=== PATIENT | female | born 1955 | race Caucasian/White ===

== ENCOUNTER → 2017-09-28 | Outpatient (CLI) | payer OTHER ==
[~2017-09-28] MED LIST: ASPI81CH PO; FLUO10 PO; Hair, Skin & N1 EACH PO; OSTERA TABLET1 EACH PO
[2017-09-30 12:11] LABS: HPV Genotype 16 Not Detected (NOTDET); HPV Genotype 18 Detected (NOTDET)
[2017-10-04 12:34] LABS: HPV High Risk Other Not Detected (NOTDET)
== END ==
LOC: OLS 12:56
PROVIDERS: Nurse Practitioner Women's Health
DX: R87.810 Cervical high risk human papillomavirus (HPV) DNA test positive (principal)
CPT/HCPCS: 87624; G0123

== ENCOUNTER → 2018-04-04 | Outpatient (CLI) | payer OTHER ==
[2018-04-06 14:10] LABS: HPV 16 Negative (Negative); HPV 18 Positive (Negative); HPV OTHER HR TYPES Negative (Negative)
== END | disposition home or self-care (01) ==
LOC: LAB 19:14 → LAB SHORT 19:14
PROVIDERS: Nurse Practitioner Women's Health
DX: Z12.72 Encounter for screening for malignant neoplasm of vagina (principal); R87.810 Cervical high risk human papillomavirus (HPV) DNA test positive
CPT/HCPCS: 87624; 88142